=== PATIENT | male | born 1975 | race Hispanic/Latino ===

== ENCOUNTER 2017-12-31 00:09 | Emergency (ER) | payer OTHER ==
[~2017-12-31] VITALS: Ht 175.3 cm; Wt 112.9 kg
[~2017-12-31 00:09] MED LIST: MOBIC15 M1 PO
[2017-12-31 01:33] LABS: ABSOLUTE BASOPHIL COUNT 0.2 /CUMM (0.0-0.2); ABSOLUTE EOSINOPHIL COUNT 0.5 /CUMM (0.0-0.7); ABSOLUTE GRANULOCYTE CT 6.7 /CUMM (1.4-6.5); ABSOLUTE LYMPH COUNT 2.4 /CUMM (1.2-3.4); ABSOLUTE MONOCYTE COUNT 0.7 /CUMM (0.10-0.60); BASOPHIL % 1.6 % (0.0-2.0); EOSINOPHIL % 4.4 % (0-5); GRANULOCYTE % 64.2 % (42.2-75.2); HEMATOCRIT 40.2 % (42-52); MEAN CORPUSCULAR HGB 30.6 PG (27.0-31.0); MEAN CORPUSCULAR HGB CONC 34.7 G/DL (33.0-37.0); MEAN CORPUSCULAR VOLUME 88.4 FL (80.0-94.0); MEAN PLATELET VOLUME 10.8 FL (7.4-10.4); PLATELET COUNT 191 /CUMM (130-400); RBC DISTRIBUTION WIDTH 12.8 % (11.5-14.5); RED BLOOD CELL CT 4.55 /CUMM (4.70-6.10); WHITE BLOOD CELL COUNT 10.4 /CUMM (4.8-10.8)
--- NOTE | 2017-12-31 01:54 | RADIOLOGY REPORT ---
EXAMINATION: XR PORTABLE CHEST CLINICAL INFORMATION: Chest pain COMPARISON: 06/24/2017 TECHNIQUE: Portable frontal view of the chest was obtained. FINDINGS: Lung volumes are symmetric. No focal consolidation is seen. No evidence of pneumothorax, pleural effusion, or pulmonary edema. The cardiomediastinal contour is unremarkable. No acute osseous findings are seen. IMPRESSION: No acute cardiopulmonary findings.
--- NOTE | 2017-12-31 02:00 | ED CARDIAC/CP/PALPITATIONS ---
History of Present Illness General Chief Complaint: Chest Pain Stated Complaint: DIFF BREATHING, CHEST DISCOMFORT,DIZZY Source: patient, family, old records Exam Limitations: no limitations Vital Signs & Intake/Output Vital Signs & Intake/Output Vital Signs Date Time Temp Pulse Resp B/P B/P Pulse O2 O2 Flow FiO2 Mean Ox Delivery Rate 12/31 0029 96.0 66 20 121/67 97 Room Air Allergies Coded Allergies: No Known Allergies (08/08/15) Reconcile Medications Meloxicam (Mobic) 15 MG TABLET 1 TAB PO DAILY PRN PAIN Core Measure Meds Pre-Hospital aspirin Triage Note: PT FROM HOME C/O OF HEART BURN FOR THE PAST 2 DAYS. PT STATES HE TOOK 6 ASA 81MG THAT SLIGHTLY RESOLVED. PT STATES SOB, "CHEST FLUTTER" EARLIER IN THE DAY. PT DENIES ARM NUMBNESS/TINGLING, JAW PAIN. PT STATES LEFT SHOULDER PAIN THAT IS ACHING 4/10 PAIN. PT PLACED ON MONITOR. Triage Nurses Notes Reviewed? yes Onset: Just prior to arrival Duration: hour(s):, continues in ED, waxing and waning Timing: recent history Quality/Severity: moderate, severe, pressure Location: shoulder Radiation: arms Activities at Onset: rest Prior Chest Pain/Card Workup: no prior cardiac workup Nitro Today/Relief: 0.4 mg x 1, provided by ED, mild relief Aspirin Today: provided at home, 6 baby aspirin Associated Symptoms: diaphoresis, fatigue, shortness of breath HPI: 2 days prior to admission patient complains of mild to moderate heartburn constant nonradiating. 1 day prior to admission the patient reports episodic left-sided chest pain being to shoulder neck and arm associated with diaphoresis anxiety shortness of breath. Prior to admission he had recurrent chest pain with heart fluttering. He took a Xanax. He denies fever chills nausea vomiting diarrhea abdominal pain cough headache dysuria rash bleeding. Past History Travel History Traveled to [place] past 21 day No Medical History Any Pertinent Medical History? see below for history Neurological: NONE EENT: NONE Cardiovascular: NONE Respiratory: obstructive sleep apnea Gastrointestinal: NONE Hepatic: NONE Renal: NONE Musculoskeletal: NONE Psychiatric: NONE Endocrine: NONE Surgical History Surgical History: non-contributory Psychosocial History What is your primary language Yi Tobacco Use: Quit >30 days ago ETOH Use: occasional use Illicit Drug Use: denies illicit drug use Family History Hx Contributory? No Review of Systems Review of Systems Constitutional: Reports: see HPI, diaphoresis. EENTM: Reports: no symptoms. Respiratory: Reports: see HPI, short of breath. Cardiovascular: Reports: see HPI, chest pain. GI: Reports: no symptoms. Genitourinary: Reports: no symptoms. Musculoskeletal: Reports: no symptoms. Skin: Reports: no symptoms. Neurological/Psychological: Reports: no symptoms. Hematologic/Endocrine: Reports: no symptoms. Immunologic/Allergic: Reports: no symptoms. All Other Systems: Reviewed and Negative Physical Exam Physical Exam General Appearance: well developed/nourished, alert, awake, anxious, moderate distress, obese Head: atraumatic, normal appearance Eyes: Bilateral: normal appearance, PERRL, EOMI. Ears, Nose, Throat: normal pharynx, normal ENT inspection, hearing grossly normal Neck: normal inspection, supple, full range of motion, no midline tenderness Respiratory: normal breath sounds, chest non-tender, no respiratory distress, quiet respiration, lungs clear Cardiovascular: regular rate/rhythm, normal peripheral pulses, norml femoral pulses equa Peripheral Pulses: 4+ carotid (R), 4+ carotid (L) Gastrointestinal: normal bowel sounds, soft, non-tender, no organomegaly Back: normal inspection, normal range of motion, no vertebral tenderness Extremities: normal inspection, normal capillary refill, normal range of motion, no edema, calf tenderness Neurologic/Psych: no motor/sensory deficits, awake, alert, oriented x 3, normal gait, nat instructor II-XII nml as tested Reflexes: 2+: bicep (R), bicep (L). Skin: intact, normal color, diaphoresis Lymphatic: no anterior cervical charan Core Measures ACS in differential dx? 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 No Progress Differential Diagnosis: costochondritis, hyperkalemia, hypovolemia, musculoskeletal pain, pneumonia Plan of Care: Orders Procedure Date/time Status TROPONIN LEVEL 12/31 0420 Complete TOTAL TRIODOTHYROXINE 12/31 0122 Complete FREE T4 12/31 0122 Complete TSH REFLEX 12/31 010 Complete TROPONIN LEVEL 12/31 0104 Complete MAGNESIUM 12/31 0104 Complete D-DIMER 12/31 010 Complete COMPREHENSIVE METABOLIC PANEL 12/31 010 Complete CBC WITHOUT DIFFERENTIAL 01/01 104 Complete EKG 12/31 0013 Active Laboratory Tests 12/31/17 0424: Troponin I < 0.01 12/31/17 0122: Anion Gap 13, Estimated GFR > 60, BUN/Creatinine Ratio 21.1, Glucose 106 H, Calcium 9.3, Magnesium 1.7, Total Bilirubin 0.3, AST 40, ALT 78 H, Alkaline Phosphatase 75, Troponin I < 0.01, Total Protein 7.2, Albumin 4.3, Globulin 2.9, Albumin/Globulin Ratio 1.5, Free T4 0.85, Total T3 1.39, TSH &T3 &Free T4 Intrp 4.940 H, D-Dimer High Sensitivty < 200, CBC w Diff MAN DIFF ORDERED, RBC 4.55 L, MCV 88.4, MCH 30.6, MCHC 34.7, RDW 12.8, MPV 10.8 H, Gran % 64.2, Lymphocytes % 23.1, Monocytes % 6.7, Eosinophils % 4.4, Basophils % 1.6, Absolute Granulocytes 6.7 H, Segmented Neutrophils 66, Absolute Lymphocytes 2.4 , Lymphocytes 25, Monocytes 2, Absolute Monocytes 0.7 H, Eosinophils 7 H, Absolute Eosinophils 0.5, Absolute Basophils 0.2, Platelet Estimate ADEQUATE, Polychromasia 1+, Ovalocytes FEW, Fld Total RBCs Counted 100 Diagnostic Imaging: Viewed by Me: Radiology Read. Discussed w/RAD: Radiology Read. CXR Impression: no acute abnormality, no infiltrates, normal size heart, normal mediastinum Initial ED EKG: normal axis, normal intervals, normal p-waves, normal QRS complex, normal sinus rhythm, no ST T wave changes Rhythm Strip: normal sinus rhythm Departure Departure Time of Disposition: 520 Disposition: HOME OR SELF CARE Condition: Stable Clinical Impression Primary Impression: Chest pain syndrome Referrals: Cailin PRICE,Santos [facility]arton Call for cardiology follow up Departure Forms: Customer Survey General Discharge Information RELEASE- WORK Critical Care Note Critical Care Note Critical Care Time: 30-74 min (40)
[2017-12-31 05:35] VITALS: BP 112/66
== END 2017-12-31 05:45 ==
LOC: ERH 00:09
PROVIDERS: Emergency Medicine
DX: R07.89 Other chest pain (principal); Z87.891 Personal history of nicotine dependence; F10.10 Alcohol abuse, uncomplicated; G47.33 Obstructive sleep apnea (adult) (pediatric)
CPT/HCPCS: 71045; 93005; 93010; J3490